=== PATIENT | female | born 1965 | race Caucasian/White ===

== ENCOUNTER 2017-11-28 23:48 | Emergency (ER) | payer MEDICAID ==
[~2017-11-28] VITALS: Ht 170.2 cm; Wt 74.8 kg
[~2017-11-28 23:48] MED LIST: FERR1TAB44 PO; FOLI1TAB16 PO; MULT-74 PO; MULT1CAP34 PO; NORE-83 PO; NORE1TAB94 PO
[2017-11-28 23:50] VITALS: BP 145/73
[2017-11-29] MEDS ORDERED: predniSONE 20 MG TABLET PO ONE (00:30)
[2017-11-29] MEDS ORDERED: diphenhydrAMINE HCL 25 MG CAPSULE PO ONE (00:30)
[2017-11-29] MEDS ORDERED: predniSONE 20 MG TABLET ONE (00:37)
[2017-11-29] MEDS ORDERED: diphenhydrAMINE HCL 50 MG CAPSULE ONE (00:37)
--- NOTE | 2017-11-29 00:44 | NUR ---
Patient discharged to home in stable condition. Written and verbal after care instructions given. Patient verbalizes understanding of instruction. Left with at bedside. Discharged with steady gait, stable condition.
== END 2017-11-29 01:15 | disposition home or self-care (01) ==
LOC: ER 23:49
DX: L30.8 Other specified dermatitis (principal); C95.90 Leukemia, unspecified not having achieved remission; Z98.890 Other specified postprocedural states
CPT/HCPCS: A4606; Q0163; Z7610